=== PATIENT | female | born 1980 | race Two or more races ===

== ENCOUNTER → 2025-02-06 | Outpatient (CLI) | payer MEDICAID, SELFPAY ==
--- NOTE | 2025-02-06 11:15 | XR_ITS ---
Examination: Breast ultrasound, unilateral, left complete Date and time of exam: February 06, 2025 1242 hours INDICATIONS: Mammogram September 26, 2024 architectural distortion 9:00 position left breast Technique: Real-time vasquez scale ultrasonographic imaging performed left breast including all 4 quadrants as well as nipple retroareolar and axillary region. Findings: No cystic or solid mass IMPRESSION: BI-RADS Category 1: Negative study
--- NOTE | 2025-02-06 11:45 | XR_ITS ---
Examination: Diagnostic digital mammography, unilateral, left Computer aided detection 3-D breast Tomosynthesis, unilateral Date and time of exam: February 06, 2025 1239 hours INDICATIONS: Mammogram September 26, 2024 architectural distortion 9:00 position left breast Technique: Nonmagnified MLO, CC views of the left breast have been obtained, reconstructed from 3-D Tomosynthesis images. R2 computer aided detection program utilized for evaluation of suspicious masses and/or abnormal calcifications. 3-D Tomosynthesis images obtained. Findings: The breast is heterogeneously dense, which may obscure small masses No architectural distortion is confirmed on the spot compression views Impression: BI-RADS category 2: Benign findings Return to yearly follow-up mammography
== END | disposition home or self-care (01) ==
PROVIDERS: PCP Physician Assistant; Referring Provider Nurse Practitioner Primary Care; Visit Provider Nurse Practitioner Primary Care
DX: R92.322 Mammographic fibroglandular density, left breast (principal); R92.8 Other abnormal and inconclusive findings on diagnostic imaging of breast
CPT/HCPCS: 76641; 77061; 77065; G0279

== ENCOUNTER 2025-06-02 01:44 | Emergency (ER) | payer MEDICAID, SELFPAY ==
[2025-06-02 01:44] VITALS: BP 158/89; PULSE 89; RESP 17; TEMP 37.3; O2SAT 96; BMI 32.9
--- NOTE | 2025-06-02 02:40 | XR_ITS ---
Examination: PA lateral chest 2 views TECHNIQUE: Upright PA and lateral chest 2 views Date and time: June 02, 2025, 0313 hours Comparison 07/20/2010. INDICATIONS: Coughing chest pain shortness of breath today FINDINGS: Normal heart size. The lungs are clear. The osseous structures are intact. IMPRESSION: No active disease.
--- NOTE | 2025-06-02 02:42 | PD.EDSOB ---
ED SOB =RME/HPI General Chief Complaint: Flu Like Symptoms Stated Complaint: COUGH, FEELS SOB Time Seen by Provider: 06/02/25 02:03 Arrival date/time: 06/02/25 01:44 RME / HPI RME / HPI Narrative: 45-year-old female presents to the ED with a 6-day complaint of spasmodic coughing with shortness of breath both through her nose as well as her chest. She has had clear sputum production. She denies any fever or chills but has had a runny nose and nasal congestion. She denies any ear pain or sore throat. Spouse and son at home are ill with similar symptoms. Related Data Previous Rx's ?Medication ?Instructions ?Recorded albuterol sulfate 90 mcg/actuation 2 puff inhalation Q4H PRN 06/02/25 aerosol inhaler shortness of breath or wheezing #8.5 grams azithromycin 250 mg tablet See Rx Instructions .Route 06/02/25 (Zithromax Z-Chance) .COMPLEX #6 tabs benzonatate 200 mg capsule 200 mg PO TID PRN cough #15 caps 06/02/25 prednisone 20 mg tablet 60 mg (3 x 20 mg) PO QDAY 5 days 06/02/25 #15 tabs Allergies Allergy/AdvReac Type Severity Reaction Status Date / Time NKA* Allergy Uncoded 08/22/13 13:10 Review of Systems Review of Systems Systems Reviewed: All systems reviewed, normal except as documented Past Medical History Social History SMOKING STATUS: Never smoker ED Exam Narrative Physical exam: A&O, afebrile and non-toxic appearing 45-year-old female, active spasmodic coughing noted. No respiratory distress noted. Lung are diminished at the bases with rhonchi noted as well as scattered wheezes. RRR, TMs and pharynx without erythema. Nares are pale and boggy with clear discharge noted. Abdomen is non-distended. Moves all extremities well. Course Course Course Narrative: Patient was given dexamethasone 10 mg p.o. as well as a DuoNeb treatment. COVID and influenza swabs obtained and are negative. XR chest 2 view reveals: Pattern of bronchitis per ED physician preliminary read. Quality Measures none Orders Category Date Time Status Bedside COVID-19 Antigen Test NOW Care 06/02/25 02:40 Active Bedside Influenza A&B Antigen Test NOW Care 06/02/25 02:41 Completed XR chest 2V Stat Exams 06/02/25 02:40 Taken Albuterol/Ipratr Rt No [Duoneb Rt No] Med 06/02/25 02:40 Discontinued 3 ml INH X1 ONE Dexamethasone Inj [Decadron Inj] Med 06/02/25 02:40 Discontinued 10 mg PO X1 ONE Vital Signs Vital signs: Vital Signs Temperature 99.2 F 06/02/25 01:44 Pulse Rate 89 06/02/25 01:44 Respiratory Rate 17 06/02/25 01:44 Blood Pressure 158/89 H 06/02/25 01:44 Pulse Oximetry (%) 96 06/02/25 01:44 Oxygen Delivery Method Room Air 06/02/25 01:44 Shortness of Breath / Dyspnea Medications / Prescriptions Medication administrations:: Medication Administration History Discontinued Medications Albuterol/Ipratropium (Albuterol/Ipratropium (Duoneb) Rt No 3 Ml Nebu) 3 ml INH X1 ONE Stop: 06/02/25 02:41 Last Admin: 06/02/25 02:54 Dose: 3 ml Documented By: CS Dexamethasone Sodium Phosphate (Dexamethasone Sod Phos Inj 10 Mg/Ml Vial) 10 mg PO X1 ONE Stop: 06/02/25 02:41 Last Admin: 06/02/25 02:50 Dose: 10 mg Documented By: BD Comments: given po Discharge Plan Plan Patient Disposition: HOME (Self Care) Discharge Disposition comment: Stable and Improved. Prescriptions/Referrals Prescriptions/Med Rec: New azithromycin [Zithromax Z-Chance] 250 mg tablet See Rx Instructions .ROUTE .COMPLEX Qty: 6 0RF Rx Instructions: Take 2 tablets (500mg) on day one, then 1 tablet (250mg) daily on days 2-5. albuterol sulfate 90 mcg/actuation HFA aerosol inhaler 2 puff inhalation Q4H PRN (Reason: shortness of breath or wheezing) Qty: 8.5 0RF benzonatate 200 mg capsule 200 mg PO TID PRN (Reason: cough) Qty: 15 0RF prednisone 20 mg tablet 60 mg PO QDAY 5 Days Qty: 15 0RF Referrals: Bari Addison MD [Primary Care Provider] - In 1 week Problem List Clinical Impression: Bronchitis, Upper respiratory infection Patient/Caregiver Discharge Instructions Education Materials: ED Upper Resp Infec Abx Tx, ED Bronchitis with Wheezing (Adult) Additional Instructions: [place] los antibioticos eric lo prescrito y complete elcurso a pesar de que puede sentirse major. Adriana un seguimiento con angel medico de atencion primaria en 24 a 48 horas. Regresar al departamento de emergencias por cualquier sintoma nuevo o que empeore. Print Language: Urdu Stand Alone Forms: Alyssa Award Info., Patient Portal Info Letter PA/FOOD ORDER DELIVERY RUNNER Supervising Physician PA/FOOD ORDER DELIVERY RUNNER Supervising Physician: Dr Regalado
[2025-06-02] MEDS: DEXAMETHASONE SOD PHOS INJ 10 MG/ML VIAL PO (02:50)
[2025-06-02] MEDS: ALBUTEROL/IPRATROPIUM (Duoneb) RT SOL 3 ML NEBU INH (02:54)
[2025-06-02 02:58] VITALS: PULSE 90; RESP 20; O2SAT 99
== END 2025-06-02 05:13 | disposition home or self-care (01) ==
PROVIDERS: Emergency Provider Emergency Medicine; PCP Family Medicine
DX: J40 Bronchitis, not specified as acute or chronic (principal); J06.9 Acute upper respiratory infection, unspecified
CPT/HCPCS: 71046; 87400; 87811; 94640; 99283; A9270; J1100